=== PATIENT | male | born 1945 | race Caucasian/White ===

== ENCOUNTER → 2017-01-11 | Outpatient (CLI) | payer MEDICARE, OTHER ==
[~2017-01-11] MED LIST: BYSTOLIC10 MG PO; CELEBREX200 MG PO; CLOBETASOL PROP30 GM TOP; COREG12.5 MG PO; COREG6.25 MG PO; CYMBALTA30 MG PO; FISH OIL1 GM PO; GLUCOPHAGE1000 MG PO; GLUCOPHAGE500 MG PO; GLUCOTROL XL5 MG PO; GLUCOTROL10 MG PO; GLUCOTROL5 MG PO; INVOKANA100 MG PO; JANUVIA50 MG PO; KLOR-CON M1010 MEQ PO; LASIX20 MG PO; LASIX40 M1 PO; LASIX40 MG PO; LEVAQUIN500 MG PO; LIPITOR40 MG PO; LOTENSIN20 MG PO; LOTRISONE15 GM TOP; MOBIC15 MG PO; NEURONTIN300 MG PO; NITROSTAT0.4 MG SL; NORCO 325-5 MG1 TAB PO; NORVASC10 MG PO; NOVOLOG FL100 UNIT/1 SUBCUT; OMEGA FISH O PO; ONGLYZA5 MG PO; Oxygen; PLAVIX75 MG PO; PRADAXA150 MG PO; PREDNISONE10 MG PO; PREDNISONE20 MG PO; PRILOSEC20 MG PO; PRINIVIL2.5 MG PO; PROAIR HFA8.5 GM INH; SPIRIVA18 MCG INH; TAMIFLU30 MG PO; TESSALON PERLE100 M1 PO; TRIAMCINOLONE A15 GM TOP; TRICOR145 MG PO; VENTOLIN HFA18 GM INH; VITAMIN B-121000 MCG PO; VITAMIN D31000 UNI1 PO; ZYRTEC10 M3 PO
== END | disposition short-term general hospital (02) ==
LOC: CLCARD 10:11
DX: I25.10 Atherosclerotic heart disease of native coronary artery without angina pectoris (principal); I10 Essential (primary) hypertension; J44.9 Chronic obstructive pulmonary disease, unspecified; E78.5 Hyperlipidemia, unspecified

== ENCOUNTER → 2017-02-15 | Outpatient (CLI) | payer MEDICARE, OTHER | END | disposition short-term general hospital (02) | LOC: CLCARD 02-08 03:41 | DX: I25.10 Atherosclerotic heart disease of native coronary artery without angina pectoris (principal); I50.20 Unspecified systolic (congestive) heart failure; R03.1 Nonspecific low blood-pressure reading; J44.9 Chronic obstructive pulmonary disease, unspecified; I25.5 Ischemic cardiomyopathy; E11.9 Type 2 diabetes mellitus without complications; I10 Essential (primary) hypertension; E78.5 Hyperlipidemia, unspecified; I48.0 Paroxysmal atrial fibrillation; D64.9 Anemia, unspecified; R20.0 Anesthesia of skin; R09.89 Other specified symptoms and signs involving the circulatory and respiratory systems; R94.31 Abnormal electrocardiogram [ECG] [EKG]; Z95.5 Presence of coronary angioplasty implant and graft ==

== ENCOUNTER → 2017-03-08 | Outpatient (CLI) | payer MEDICARE, OTHER | END | disposition short-term general hospital (02) | LOC: CLCARD 03-01 07:52 | DX: I11.0 Hypertensive heart disease with heart failure (principal); I50.20 Unspecified systolic (congestive) heart failure; I25.5 Ischemic cardiomyopathy; I25.10 Atherosclerotic heart disease of native coronary artery without angina pectoris; R03.1 Nonspecific low blood-pressure reading; J44.9 Chronic obstructive pulmonary disease, unspecified; E11.9 Type 2 diabetes mellitus without complications; E78.5 Hyperlipidemia, unspecified; I48.0 Paroxysmal atrial fibrillation; D64.9 Anemia, unspecified; I77.9 Disorder of arteries and arterioles, unspecified; R94.31 Abnormal electrocardiogram [ECG] [EKG]; Z95.5 Presence of coronary angioplasty implant and graft ==

== ENCOUNTER 2017-03-10 07:41 | Observation (INO) | payer MEDICARE, OTHER ==
[~2017-03-10] VITALS: Ht 188 cm; Wt 106.8 kg
[~2017-03-10 07:41] MED LIST changes: -CELEBREX200 MG PO; -CYMBALTA30 MG PO; -GLUCOTROL5 MG PO; -KLOR-CON M1010 MEQ PO; -NOVOLOG FL100 UNIT/1 SUBCUT; -OMEGA FISH O PO; -Oxygen; -TRIAMCINOLONE A15 GM TOP
[2017-03-10] MEDS ORDERED: OMEGA FISH O PO (10:24)
[2017-03-10] MEDS ORDERED: GLUCOTROL5 MG PO (10:28)
[2017-03-10] MEDS ORDERED: CELEBREX200 MG PO (10:30)
[2017-03-10] MEDS ORDERED: TRIAMCINOLONE A15 GM TOP (10:30)
[2017-03-10] MEDS ORDERED: CYMBALTA30 MG PO (10:32)
[2017-03-10] MEDS ORDERED: NITROSTAT0.4 MG SL (10:33)
[2017-03-10] MEDS ORDERED: NOVOLOG FL100 UNIT/1 SUBCUT (10:58)
[2017-03-10] MEDS ORDERED: SPIRIVA18 MCG INH (10:59)
== END 2017-03-12 12:35 | disposition short-term general hospital (02) ==
LOC: ER 07:41 → OBS 09:50 → IP 09:50
PROVIDERS: ADMIT Family Medicine
DX: J44.9 Chronic obstructive pulmonary disease, unspecified (principal); R09.02 Hypoxemia; I11.0 Hypertensive heart disease with heart failure; I50.20 Unspecified systolic (congestive) heart failure; E11.9 Type 2 diabetes mellitus without complications; M19.90 Unspecified osteoarthritis, unspecified site; E78.5 Hyperlipidemia, unspecified; Z87.891 Personal history of nicotine dependence; Z88.6 Allergy status to analgesic agent; Z88.8 Allergy status to other drugs, medicaments and biological substances; Z79.1 Long term (current) use of non-steroidal anti-inflammatories (NSAID); Z79.84 Long term (current) use of oral hypoglycemic drugs; Z79.899 Other long term (current) drug therapy
CPT/HCPCS: G0378; J0696; J1650; J1815; J1940; J2930; Q9967

== ENCOUNTER → 2017-03-15 | Outpatient (CLI) | payer MEDICARE, OTHER ==
[~2017-03-15] MED LIST changes: +CELEBREX200 MG PO; +CYMBALTA30 MG PO; +GLUCOTROL5 MG PO; +KLOR-CON M1010 MEQ PO; +NOVOLOG FL100 UNIT/1 SUBCUT; +OMEGA FISH O PO; +Oxygen; +TRIAMCINOLONE A15 GM TOP
== END | disposition short-term general hospital (02) ==
LOC: CLCARD 02:49
DX: I11.0 Hypertensive heart disease with heart failure (principal); I50.40 Unspecified combined systolic (congestive) and diastolic (congestive) heart failure; I25.10 Atherosclerotic heart disease of native coronary artery without angina pectoris; I48.0 Paroxysmal atrial fibrillation; R03.1 Nonspecific low blood-pressure reading; I25.5 Ischemic cardiomyopathy; J44.9 Chronic obstructive pulmonary disease, unspecified; E11.9 Type 2 diabetes mellitus without complications; E78.5 Hyperlipidemia, unspecified; D64.9 Anemia, unspecified; I77.9 Disorder of arteries and arterioles, unspecified; Z95.5 Presence of coronary angioplasty implant and graft

== ENCOUNTER 2017-04-20 05:18 | Observation (INO) | payer MEDICARE, OTHER ==
[~2017-04-20] VITALS: Ht 188 cm; Wt 105.9 kg
[~2017-04-20 05:18] MED LIST changes: -KLOR-CON M1010 MEQ PO; -Oxygen
[2017-04-22] MEDS ORDERED: KLOR-CON M1010 MEQ PO (09:00)
[2017-04-22] MEDS ORDERED: LASIX40 MG PO (09:00)
[2017-04-22] MEDS ORDERED: Oxygen (09:03)
== END 2017-04-22 10:25 | disposition short-term general hospital (02) ==
LOC: ER 05:18 → IP 08:15 → OBS 08:15 → IP 04-22 10:25
PROVIDERS: ADMIT Family Medicine
DX: R07.9 Chest pain, unspecified (principal); J44.9 Chronic obstructive pulmonary disease, unspecified; I25.10 Atherosclerotic heart disease of native coronary artery without angina pectoris; E11.40 Type 2 diabetes mellitus with diabetic neuropathy, unspecified; I11.0 Hypertensive heart disease with heart failure; I50.9 Heart failure, unspecified; K21.9 Gastro-esophageal reflux disease without esophagitis; Z79.899 Other long term (current) drug therapy; Z88.8 Allergy status to other drugs, medicaments and biological substances; Z87.891 Personal history of nicotine dependence
CPT/HCPCS: A9150; G0378; J1650; J1940; J2270; Q9967